=== PATIENT | female | born 1945 | race Caucasian/White ===

== ENCOUNTER 2019-05-09 10:38 | Inpatient (IN) ==
--- NOTE | 2019-04-07 13:52 | PAT Medication Instructions ---
Medication Instructions Date of Service April 07, 2019 Home Medications [[facility]] A-C-E-zinc ox-cupric ox-lutein 1 tab PO BID [probiotic] Lactobacillus acidophilus 1 dose PO DAILY acetaminophen [Tylenol Arthritis 650 mg PO Q12H PRN aflibercept [Eylea] 1 dose INTRAVITREAL Q42D alprazolam [Xanax] 0.25 mg PO HS PRN carvedilol phosphate [Coreg CR] 20 mg PO QPM cetirizine 5 mg PO HS cholecalciferol (vitamin D3) 2,000 unit PO QAM estradiol [Estrace] 1 g VAGINAL Q3D ezetimibe [Zetia] 10 mg PO QPM melatonin 3 mg PO HS PRN olmesartan 5 mg PO QAM rivaroxaban [Xarelto] 20 mg PO PM ASK your surgeon for instructions estradiol [Estrace] 1 g VAGINAL Q3D ASK your prescriber and surgeon rivaroxaban [Xarelto] 20 mg PO PM (in order for spinal anesthesia, this needs to be held for 72 hours/3 days prior to surgery-- please check is this is okay with prescribing doctor) aflibercept [Eylea] 1 dose INTRAVITREAL Q42D STOP taking 2 weeks before surgery (or as soon as possible if surgery is within 2 weeks) [[facility]] A-C-E-zinc ox-cupric ox-lutein 1 tab PO BID DO NOT take the morning of surgery [probiotic] Lactobacillus acidophilus 1 dose PO DAILY cholecalciferol (vitamin D3) 2,000 unit PO QAM olmesartan 5 mg PO QAM Take morning of surgery With a small sip of water, OTHERWISE NOTHING TO EAT OR DRINK AFTER MIDNIGHT: acetaminophen [Tylenol Arthritis 650 mg PO Q12H PRN (okay to take up to 4 hours prior to surgery if needed) Take evening before surgery acetaminophen [Tylenol Arthritis 650 mg PO Q12H PRN (if needed) alprazolam [Xanax] 0.25 mg PO HS PRN (if needed) carvedilol phosphate [Coreg CR] 20 mg PO QPM cetirizine 5 mg PO HS ezetimibe [Zetia] 10 mg PO QPM melatonin 3 mg PO HS PRN (if needed) Other Notes If you have any questions please call us at [phone] or [phone] or [phone] or [phone]
--- NOTE | 2019-04-10 08:13 | History & Physical Report ---
Date of Service April 10, 2019 Date of Surgery: 05-09-19 Assessment & Plan (1) Tricompartment osteoarthritis of right knee: Risks and benefits of procedure discussed in detail today, patient would like to proceed with a Right total knee replacement at [facility] as scheduled. will obtain medical clearance prior to surgery with Dr Bliss, as well as obtain PATs at [facility]. Will need to d/c her Xarelto pre-op, she will discuss with her PCP if bridging is needed, then will resume GABRIELA post- op. she will f/u 2 weeks post op for routine post-operative care and x-ray, sooner if having any problems. will make arrangements for OPPT at the time of discharge. At this point in time, has failed conservative measures and would like to proceed with surgical intervention. History of Present Illness Chief Complaint: Right Knee Pain Primary Care Provider: Farooq Greer Ms Ronquillo is a 74 year old female who complains of right knee pain, presents today for pre-op evaluation prior to a right total knee replacement at [facility]. She presents with pain, stiffness, instability and crepitus on the right side. She states that the symptoms have been chronic non-traumatic. Currently the patient states that the symptoms are moderate-severe. The pain is described as aching, discomfort and sharp. The symptoms occur intermittently. She rates her current pain as 6/10. The symptoms are aggravated by ascending stairs, daily activities, descending stairs, first steps while awake, repetitive activities and walking. Fatimah states that the symptoms are relieved by no specific activity. In addition to right knee pain the patient is also experiencing joint pain, limping, pain after activity and weakness. Pt. is on Xarelto therapy for A-Fib, which limits her NSAID use. She has been treated with previous Cortisone and Visco in the past. Patient had left TKA by Dr. Parmar 2010. at this point has failed conservative measures and would like to proceed with a Right TKA Allergies Allergy/AdvReac Type Severity Reaction Status Date / Time levofloxacin Allergy Intermediate JOINT Verified 04/06/19 09:24 SWELLING, FLUID BEHIND THE EYE codeine AdvReac Unknown nausea Unverified 04/06/19 09:23 Sulfa (Sulfonamide AdvReac Unknown nausea Unverified 04/06/19 09:23 Antibiotics) Home Medications Home Medications Medication Instructions Recorded Confirmed Type A-C-E-zinc ox-cupric ox-lutein 1 tab PO BID 04/06/19 04/06/19 History [[facility]] Lactobacillus acidophilus 1 dose PO DAILY 04/06/19 04/06/19 History [Probiotic] acetaminophen [Tylenol Arthritis 650 mg PO Q12H PRN 04/06/19 04/06/19 History Pain] aflibercept [Eylea] 1 dose INTRAVITREAL Q42D 04/06/19 04/06/19 History alprazolam [Xanax] 0.25 mg PO HS PRN 04/06/19 04/06/19 History carvedilol phosphate [Coreg CR] 20 mg PO QPM 04/06/19 04/06/19 History cetirizine 5 mg PO HS 04/06/19 04/06/19 History cholecalciferol (vitamin D3) 2,000 unit PO QAM 04/06/19 04/06/19 History [Vitamin D3] estradiol [Estrace] 1 g VAGINAL Q3D 04/06/19 04/06/19 History ezetimibe [Zetia] 10 mg PO QPM 04/06/19 04/06/19 History melatonin 3 mg PO HS PRN 04/06/19 04/06/19 History olmesartan 5 mg PO QAM 04/06/19 04/06/19 History rivaroxaban [Xarelto] 20 mg PO PM 04/06/19 04/06/19 History Past Med/Surg History Medical History Atrial fibrillation ON XARELTO Hyperlipidemia Hypertension Kidney stones Macular degeneration Surgical History H/O bilateral breast reduction surgery History of bladder surgery BLADDER TACK, BLADDER SLING History of breast biopsy History of carpal tunnel release BILATERAL History of colonoscopy History of cystoscopy WITH STONE RETRIEVAL History of dilatation and curettage History of thyroidectomy, subtotal R/T NODULES History of tonsillectomy History of total knee replacement LEFT S/P ADÁN (total abdominal hysterectomy) WITH UNILATERAL OOPHERECTOMY Family History Mother FHx: breast cancer Grandmother (Maternal) FHx: breast cancer Brother Family history of diabetes mellitus Aunt Family history of diabetes mellitus Social History Preferred Language: Mauritian Communication Ability: Effective Deputy Chief Counsel Required: No Beliefs That Will Affect Care: None Current Living Situation: Spouse and Family Other Information That Helps Us Care for You: No Feels Safe at Home: Yes Safety Concerns: Feels Safe At This Time Smoking Status: Never smoker Do You Dip or Chew Tobacco: No Second Hand Exposure: Yes Tobacco Cessation Education Requested by Patient: No Hx Alcohol Use: Yes Alcohol type: wine Hx Substance Use: No Review of Systems Review of Systems: All systems reviewed & are unremarkable except as noted in HPI & below Constitutional: no fever, no chills and no sweats Respiratory: no cough and no dyspnea Cardiovascular: no chest pain, no dyspnea and no orthopnea Gastrointestinal: no abdominal pain, no nausea and no vomiting Musculoskeletal: as per Subjective / HPI Integumentary: no rash and no lesions Physical Exam Physical Exam: Ht: 5ft 6in Wt: 85.73kg BP: 122/70 Pulse: 68 Constitutional: WD/WN, vitals as above no acute distress Respiratory: normal respiratory effort, lungs clear to auscultation no respiratory distress, no labored breathing and does not use accessory muscles Cardiovascular: RRR, no murmur, no edema Gastrointestinal (Abdomen): normal bowel sounds, soft, nontender, no hepatosplenomegaly Musculoskeletal: Right Knee Exam She ambulates with a limp, overall varus alignment, no atrophy or ecchymosis, no significant effusion, diffuse tenderness to the knee greatest over medial compartment, positive crepitation with motion, Patella position neutral, wilma's negative, Sosa's - lateral positive, Sosa's - medial positive, Posterior drawer- negative, anterior drawer negative, valgus stress negative, varus stress negative, no extensor lag, pain with active range of motion, less pain with passive painful ROM, Range of motion 0/3/110. No pain with active/passive ROM of ankle. Lower extremity strength normal. Lower extremity neuro-vascular is normal Results & Data Diagnostic Findings Right Knee X-ray from January 2019 showing advanced degenerative changes to the right knee, with narrowing of the medial compartment and patello-femoral joint with patellar spurring noted, findings showing joint space narrowing of the medial compartment and patello-femoral joint, osteophyte formation and subchondral sclerosis noted. overall varus alignment. no acute bony pathology noted. no loose bodies noted.
--- NOTE | 2019-04-10 11:17 | Anesthesiology Consultation ---
Date of Service April 10, 2019 Assessment & Plan (1) Encounter for pre-operative examination: - PCP: 04/13/19: BP "controlled." "She is medically stable for her planned procedure. - Cardio: 11/17/18: Asymptomatic. Rate is "well controlled." Continued on Xarelto. - Elevated isolated PTT at 33.6 (pt on Xarelto). Patient aware that in order for spinal anesthesia, Xarelto needs to be held 72 hours prior to surgery- okay to hold as requested per PCP.* Discussed with Dr. Jackson- recommendation to repeat AM DOS. Chart Review Chart Review: Acceptable Risk for Surgery and Patient seen in Pre Admission Testing Teaching & Discussion Pre-Anesthesia Teaching/Discussion Notes: Instructed NPO after midnight before surgery,except medications with 15 cc of water. Medication instructions provided according to the PAT guidelines. History Surgery Operation Date: 05/09/19 08:35 Proposed Procedures p Right Total Knee Arthroplasty - Ra Parmar DO Height/Weight Height: 5 ft 6 in Weight: 87.8 kg Allergies Allergy/AdvReac Type Severity Reaction Status Date / Time levofloxacin Allergy Intermediate JOINT Verified 04/10/19 11:22 SWELLING, FLUID BEHIND THE EYE codeine AdvReac Unknown NAUSEA Unverified 04/10/19 11:22 Sulfa (Sulfonamide AdvReac Unknown NAUSEA Unverified 04/10/19 11:22 Antibiotics) Medications Home Medications Medication Instructions Recorded Confirmed Last Taken A-C-E-zinc ox-cupric ox-lutein 1 tab PO BID 04/06/19 04/06/19 Unknown [[facility]] Lactobacillus acidophilus 1 dose PO DAILY 04/06/19 04/06/19 Unknown [Probiotic] acetaminophen [Tylenol Arthritis 650 mg PO Q12H PRN 04/06/19 04/06/19 Unknown Pain] aflibercept [Eylea] 1 dose INTRAVITREAL Q42D 04/06/19 04/06/19 Unknown alprazolam [Xanax] 0.25 mg PO HS PRN 04/06/19 04/06/19 Unknown carvedilol phosphate [Coreg CR] 20 mg PO QPM 04/06/19 04/06/19 Unknown cetirizine 5 mg PO HS 04/06/19 04/06/19 Unknown cholecalciferol (vitamin D3) 2,000 unit PO QAM 04/06/19 04/06/19 Unknown [Vitamin D3] estradiol [Estrace] 1 g VAGINAL Q3D 04/06/19 04/06/19 Unknown ezetimibe [Zetia] 10 mg PO QPM 04/06/19 04/06/19 Unknown melatonin 3 mg PO HS PRN 04/06/19 04/06/19 Unknown olmesartan 5 mg PO QAM 04/06/19 04/06/19 Unknown rivaroxaban [Xarelto] 20 mg PO PM 04/06/19 04/06/19 Unknown Past Medical History Medical History Atrial fibrillation ON XARELTO Hyperlipidemia Hypertension Kidney stones Macular degeneration Exercise / Class Metabolic Activity II 4-5 Yardwork/Stairs/Walk up hill Past Family History Family History Mother FHx: breast cancer Grandmother (Maternal) FHx: breast cancer Brother Family history of diabetes mellitus Aunt Family history of diabetes mellitus Past Surgical History Surgical History H/O bilateral breast reduction surgery History of bladder surgery BLADDER TACK, BLADDER SLING History of breast biopsy History of carpal tunnel release BILATERAL History of colonoscopy History of cystoscopy WITH STONE RETRIEVAL History of dilatation and curettage History of thyroidectomy, subtotal R/T NODULES History of tonsillectomy History of total knee replacement LEFT S/P ADÁN (total abdominal hysterectomy) WITH UNILATERAL OOPHERECTOMY Past Anesthesia History No Family Hx of Anesthesia Complications and Other ? A. fib with RVR post-op anesthesia emergence with breast reduction (3+ years ago)- controlled with medical management; discharged next day without issue. History of PONV No Hx of PONV and No Hx of Motion Sickness Social History Smoking Status: Never smoker Do You Dip or Chew Tobacco: No Hx Alcohol Use: Yes Alcohol type: wine alcohol intake frequency: a few times a month Hx Substance Use: No substance use type: does not use Review of Systems Patient denies chest pain, shortness of breath, cough, wheezing, palpitations. Physical Exam Vital Signs VITALS BP 150/83 P 64 TEMP 97.9 SP02 96%RA RESP 20 PHYSICAL Full neck and c-spine range of motion. Full TMJ range of motion. TMD 3.5 finger breaths Mallampati Score 3 Dentition: intact, upper front teeth capped Lungs: clear throughout to auscultation Cardiac: regular rate and rhythm, no murmurs noted Spine: normal Carotid arteries: negative bruit Extremities: no edema Testing Electrocardiogram Date: 11/17/18 A. fib at 88bpm. "Otherwise NL" per cardio. Other Testing 24 hour Holter Report: 11/15/19: average heart rate 72. prevailing rhythm was sinus; periods of sinus tracie/sinus tachycardia with rare PVC's/PAC's. One episode SVT. No symptoms reported. Laboratory Results 04/10/19 11:35 PT 11.0 Seconds (9.0-12.0) 04/10/19 11:35 INR 1.1 (0.9-1.1) 04/10/19 11:35 APTT 33.6 Seconds (21.0-31.0) H 04/10/19 11:35 6.0 % (4.5-5.6) H 04/10/19 11:35 Yellow 04/10/19 11:35 Clear (Clear) 04/10/19 11:35 5.0 (4.5-7.5) 04/10/19 11:35 Ur Specific [place] 1.025 (1.000-1.030) 04/10/19 11:35 Negative (Negative) 04/10/19 11:35 Negative (Negative) 04/10/19 11:35 Negative (Negative) 04/10/19 11:35 Negative (Negative) 04/10/19 11:35 Ur Leukocyte Esterase Negative (Negative) 04/10/19 11:35 Blood Type O Positive 04/10/19 11:35 Antibody Screen NEGATIVE 04/10/19 11:35 03/28/19 SODIUM 142 POTASSIUM 4.0 CHLORIDE 104 CO2 30 BUN 13 CREATININE 0.8 GLUCOSE 82 Due to header error, following labs header labels were missin04/10/19 HGBA1C 6.0% UA negative
[2019-04-10 11:57] LABS: Basophils # (auto) 0.02 K/uL (0-0.2); Basophils % (auto) 0.5 %; Eosinophils # (auto) 0.03 K/uL (0-0.5); Eosinophils % (auto) 0.7 %; Hematocrit (blood only) 42.1 % (37-47); Hemoglobin 13.7 g/dL (12.0-16.0); Lymphocytes # (auto) 1.67 K/uL (1.2-3.4); Lymphocytes % (auto) 39.2 %; Mean Corpuscular Hgb Conc 32.5 g/dL (32-36); Mean Corpuscular Volume 92.1 fL (80-100); Monocytes # (auto) 0.38 K/uL (0.11-0.59); Monocytes % (auto) 8.9 %; Neutrophils # (auto) 2.16 K/uL (1.4-6.5); Neutrophils % (auto) 50.7 %; Platelet Count 243 K/uL (130-400); RDW Coefficient of Variation 13.5 % (11.5-14.5); RDW Standard Deviation 45.1 fL (36.4-46.3); Red Blood Count 4.57 M/uL (4.2-5.4); White Blood Count 4.26 K/uL (4.8-10.8)
[2019-04-10 11:59] LABS: Appearance Urine Clear (Clear); Bilirubin Urine Negative (Negative); Blood Urine Negative (Negative); Color Urine Yellow; Glucose Urine UA Negative (Negative); Ketones Urine Negative (Negative); Leukocyte Esterase Urine Negative (Negative); Nitrite Urine Negative (Negative); Protein Urine Negative (Negative); Specific Gravity Urine 1.025 (1.000-1.030); Urobilinogen Urine Negative (Negative)
[2019-04-10 12:07] LABS: INR 1.1 (0.9-1.1); Partial Thromboplastin Ratio 1.2; Partial Thromboplastin Time 33.6 Seconds (21.0-31.0)
--- NOTE | 2019-04-10 12:08 | XRay Report ---
XR chest Pre-admission PA/Lat CLINICAL HISTORY: pat preoperative evaluation COMPARISON STUDY: No previous studies for comparison. FINDINGS: The bones soft tissues and hemidiaphragms are normal. The cardiomediastinal silhouette is n ormal. The lungs are clear. The pulmonary vasculature is normal. IMPRESSION: Negative chest. The above report was generated using voice recognition software. It may contain grammatical, syntax or spelling errors. Electronically signed by: Nagi Tafoya M.D. 04/10/2019 12:07 PM
[2019-04-10 12:43] LABS: Estimated Average Glucose 126 mg/dl
[~2019-05-09 10:38] MED LIST: ACETAMINOPHEN 500 MG TAB PO SCH; CEFAZOLIN 2000MG 2,000 MG/15 ML SYR IV SCH; CeleBREX 200 MG CAP PO SCH; FAMOTIDINE 20 MG TAB PO SCH; GABAPENTIN 300 MG PO SCH; LR 500ML BOLUS, THEN 15ML/HR IV SCH; METOCLOPRAMIDE HCL 10 MG TABLET PO SCH; ROPIVACAINE 0.5% HCL/PF 150 MG, BUPIVACAINE 0.5% MPF 30 ML, EPINEPHrine 30MG/30ML (OR U... INFIL SCH; dexAMETHasone 4 MG TAB PO SCH
[2019-05-09] MEDS ORDERED: BUPIVACAINE 0.5 % 5 MG/1 ML PF 10ML VIAL ONE (11:11)
[2019-05-09] MEDS ORDERED: ROPIVACAINE 0.5% 5 MG/ML 30 ML VIAL ONE (11:11)
[2019-05-09 11:22] LABS: Partial Thromboplastin Ratio 1.1; Partial Thromboplastin Time 29.3 Seconds (21.0-31.0)
[2019-05-09] MEDS ORDERED: MIDAZOLAM HCL 1 MG/ML 2ML VIAL ONE ×2 (11:33)
[2019-05-09] MEDS ORDERED: fentaNYL citrate 100 MCG/2 ML VIAL ONE (11:34)
[2019-05-09] MEDS ORDERED: LIDOCAINE HCL 2% 2 ML VIAL/AMP(20MG/ML) INFIL ONE (11:35)
[2019-05-09] MEDS ORDERED: PROPOFOL IV EMULSION 10 MG/ML 20 ML VIAL IV ONE (11:35)
[2019-05-09] MEDS ORDERED: ONDANSETRON INJ 2 MG/ML 2 ML VIAL ONE (11:37)
[2019-05-09] MEDS ORDERED: ONDANSETRON INJ 2 MG/ML 2 ML VIAL IV PRN ×2 (12:10→15:54)
[2019-05-09] MEDS ORDERED: ATROPINE SULFATE 0.1 MG/ML 10ML SYR IV PRN (12:10)
[2019-05-09] MEDS ORDERED: fentaNYL citrate 100 MCG/2 ML VIAL IV PRN (12:10)
[2019-05-09] MEDS ORDERED: ePHEDrine sulfate 50 MG/ML AMP IV PRN (12:10)
[2019-05-09] MEDS ORDERED: ORTHO JOINT ANESTHETIC ONE (12:13)
[2019-05-09] MEDS ORDERED: BACITRACIN INJ 50,000 UNIT VIAL ONE (12:13)
[2019-05-09] MEDS ORDERED: TRANEXAMIC ACID 1,000 MG in 0.9 % SODIUM CHLORIDE 100 ML IV ONE (12:30)
--- NOTE | 2019-05-09 12:41 | History & Physical Bridge Note ---
Date of Service May 09, 2019 History & Physical Bridge Note I have examined the patient, reviewed the History & Physical and in the interval since the performance of the History & Physical I have noted the following changes of clinical significance: no changes noted
[2019-05-09] MEDS ORDERED: POVIDONE-IODINE 10% OINT 30 GM TUBE EXT SCH (13:30)
--- NOTE | 2019-05-09 13:51 | Operative Report ---
Post Operative Report Pre & Post Diagnosis Operation Date: 05/09/19 13:00 Pre-Op Diagnosis: Left Knee Osteoarthritis Post-Op Diagnosis: Left Knee Osteoarthritis Procedure Operation Date: 05/09/19 13:00 Actual Procedures p Right Total Knee Arthroplasty(Right) utilizing [employer] to non- block total knee arthroplasty size 6 femur size 5 tibia size 10 polyethylene s ize 32 oval patella- Ra Parmar DO Surgeon Ra Parmar DO Product Marketing Executive Nagi LICEA Estimated Blood Loss 5 Findings Consistent with Post-Op Diagnosis Patient presents with severe end-stage tricompartmental degenerative joint disease right knee bone to bone changes no response to conservative management patient patient has some bone to bone changes eburnated bone subchondral cystic changes marginal osteophytes varus alignment with moderate to large effusion Specimens Bone cartilage Drains Medium bore Hemovac Complications none Disposition Accompanied Patient To Recovery: No Disposition: Recovery Room Indications Patient presents as a 72-year-old female with severe end-stage tricompartmental degenerative joint disease right knee is been no response to conservative management presents today for right total knee arthroplasty. The above intraoperative findings noted the patient is failed attempted injections corticosteroid injections Visco supplementations relative rest activity modific ation bracing presents for right total knee arthroplasty Description of Procedure After proper prepping and draping of the Right lower extremity anterior midline incision was made over the region of the extensor extensor mechanism after meticulous hemostasis was obtained and maintained in subcutaneous tissues a medial parapatellar incision was made The patella was subluxed lateralward the medial lateral gutter were cleaned from any hypertrophic synovitis and scar tissue of the distal femoral block was placed and the distal femoral osteotomy cut was made subsequently the chamfers anterior and posterior osteotomy cuts were made utilizing the 4-in-1 block the tibia was subsequently subluxed anteriorward medial and ateral meniscal remnants were excised in their entirety remnants of the anterior and posterior cruciate ligaments were excised in their entirety excellent exposure of the proximal tibia was obtained the tibial osteotomy guide was placed on the proximal tibial osteotomy cut was made once again the knee was irrigated with copious amounts of sterile saline solution the patella was subsequently everted lateralward thickened scar tissue around the patella was removed the patella was subsequently cut utilizing a freehand technique and was drilled prepared for final preparation and placement of patella socially flexion-extension gaps were checked and the equal and symmetric trials were placed to the appropriate femoral and tibial trials with poly-spacer being placed for equal flexion and extension gaps and full range of motion including extension to 0 and flexion to 140� the trial components after having been taken to recovery range of motion was subsequently removed meticulous hemostasis was obtained and maintained subsequently a knee block injection of joint cocktail including ropivacaine 0.5% 150 mg. Bupivacaine 0.5% epinephrine 1-200,030 mL's toradol 30 mg dexamethasone 4 mg ketamine 10 mg clonidine 100 micrograms normal saline solution 30 mg was infiltrated into the soft tissues of the posterior knee medial lateral gutters and periosteal synovium special attention was paid to protect neurovascular structures at all times subsequently trial components having been removed the knee was irrigated with sterile saline solution. debris was removed the proximal tibia was subsequently prepared and was made ready for the placement of the tibial component tibial component was also cemented and tamped into position the femoral component was subsequently placed and cemented in the position the patellar component was subsequently cemented in position because hemostasis once again obtained and maintained wound having been thoroughly irrigated with debridement and debridement lavage was performed as well as a medial parapatellar incision closed with #1 Vicryl in interrupted fashion subcutaneous was closed with #2 Vicryl skin was closed with skin clips. PA-C was necessary for prepping and drapping as well as wound closure of deep fascia Sub cutaneous tissue and skin and was necessary for the case. A sterile compressive dressing was placed patient was taken to recovery in stable condition of report dictated by Ghulam I attest to the content of the Intraoperative Record and any orders documented therein. Any exceptions are noted below. I attest to the content of the Intraoperative Record and any orders documented therein. Any exceptions are noted below.
[2019-05-09] MEDS ORDERED: PHENYLEPHRINE HCL 10 MG/ML VIAL ONE (14:19)
--- NOTE | 2019-05-09 15:23 | XRay Report ---
XR knee RT 2V routine HISTORY: 74 years-old Female Surgical Post Op right knee total joint arthroplasty. COMPARISON: None available TECHNIQUE: 2 views of the right knee FINDINGS: Right knee total joint arthroplasty and patella resurfacing demonstrates satisfactory alignment witho ut acute fracture or retained foreign body. Expected postsurgical soft tissue swelling with surgical drainage catheter. IMPRESSION: Right knee total joint arthroplasty and patella resurfacing demonstrates satisfactory ali gnment. The above report was generated using voice recognition software. It may contain grammatical, syntax o r spelling errors. Electronically signed by: Misael Hernandez M.D. 05/09/2019 3:22 PM
--- NOTE | 2019-05-09 15:35 | Anesthesiology Progress Note ---
Date of Service May 09, 2019 Anesthesia Post Procedure Vital Signs Vital Signs: Temp Pulse Pulse Resp BP Pulse Ox 05/09/19 15:20 36.4 C L 67 18 114/72 97 05/09/19 15:10 36.4 C L 69 18 114/71 98 05/09/19 15:00 71 18 112/76 98 05/09/19 14:50 67 18 109/75 100 05/09/19 14:40 71 18 106/72 99 05/09/19 14:32 36.4 C L 71 18 117/79 98 05/09/19 11:20 36.8 C 99 H 20 148/94 H 98 Transfer of Care Handoff Completed per policy Notes Mental Status: alert / awake / arousable Patient Amnestic to Procedure: Yes Nausea / Vomiting: adequately controlled Pain: adequately controlled Airway Patency, RR, SpO2: stable & adequate BP & HR: stable & adequate Hydration State: stable & adequate Neuraxial Anesthesia: was administered and sensory block is resolving Anesthetic Complications: no major complications apparent and Pt Satisfied with anesthetic care
[2019-05-09] MEDS ORDERED: MAGNESIUM HYDROXIDE SUSP 30 ML UDC PO PRN (15:54)
[2019-05-09] MEDS ORDERED: BISACODYL 10 MG SUPP PR PRN (15:54)
[2019-05-09] MEDS ORDERED: NALOXONE HCL 0.4 MG/1 ML VIAL/CARP IV PRN (15:54)
[2019-05-09] MEDS ORDERED: METOCLOPRAMIDE HCL INJ 5 MG/ML 2 ML VIAL IV PRN (15:54)
[2019-05-09] MEDS ORDERED: AFLIBERCEPT INT VIT SCH (15:54)
[2019-05-09] MEDS ORDERED: ALPRAZolam 0.25 MG TABLET PO PRN (15:54)
[2019-05-09] MEDS ORDERED: ESTRADIOL 1 GM PV SCH (15:54)
[2019-05-09] MEDS ORDERED: HYDROmorphone INJ 1 MG/ML SYRINGE IV PRN (15:54)
[2019-05-09] MEDS: KETOROLAC TROMETHAMINE 15 MG/ML VIAL IV SCH ×2 (17:58→23:43)
[2019-05-09] MEDS: SODIUM CHLORIDE 0.9% 1000ML 1,000 ML IV SCH (19:25)
[2019-05-09] MEDS: CEFAZOLIN 2000MG 2,000 MG/15 ML SYR IV SCH (19:26)
[2019-05-09] MEDS: OXYCODONE HCL IR 5 MG TAB (IMMEDIATE RELEASE) PO PRN (20:57)
[2019-05-09] MEDS: SENNA 8.6 MG TAB PO SCH (20:58)
[2019-05-09] MEDS: DOCUSATE SODIUM 100 MG CAP PO SCH (20:58)
[2019-05-09] MEDS: CETIRIZINE HCL 10 MG TABLET PO SCH (20:58)
[2019-05-09] MEDS: EZETIMIBE 10 MG TABLET PO SCH (20:58)
[2019-05-09] MEDS: COREG 20 MG PO SCH (20:58)
[2019-05-09] MEDS: ACETAMINOPHEN 500 MG TAB PO SCH (20:59)
[2019-05-09] MEDS ORDERED: CARVEDILOL PHOSPHATE 20 MG PO SCH (21:00)
[2019-05-10] MEDS: OXYCODONE HCL IR 5 MG TAB (IMMEDIATE RELEASE) PO PRN ×3 (01:00→22:51)
[2019-05-10] MEDS: SODIUM CHLORIDE 0.9% 1000ML 1,000 ML IV SCH (04:37)
[2019-05-10] MEDS: ACETAMINOPHEN 500 MG TAB PO SCH ×3 (05:32→21:20)
[2019-05-10] MEDS: CEFAZOLIN 2000MG 2,000 MG/15 ML SYR IV SCH (05:32)
[2019-05-10] MEDS: KETOROLAC TROMETHAMINE 15 MG/ML VIAL IV SCH ×4 (05:32→23:43)
[2019-05-10 05:51] LABS: Hematocrit (blood only) 36.9 % (37-47); Hemoglobin 12.4 g/dL (12.0-16.0); Mean Corpuscular Hgb Conc 33.6 g/dL (32-36); Mean Corpuscular Volume 91.3 fL (80-100); Mean Platelet Volume 9.3 fL (7.4-10.4); Platelet Count 239 K/uL (130-400); RDW Standard Deviation 43.6 fL (36.4-46.3); Red Blood Count 4.04 M/uL (4.2-5.4); White Blood Count 10.34 K/uL (4.8-10.8)
[2019-05-10 06:26] LABS: BUN Creatinine Ratio 19.7 (10-20); Calcium 8.4 mg/dl (8.5-10.1); Creatinine Clr Calc Pharmacy 55.1 ml/min; Est GFR (African American) 62.9; Est GFR (Non-African American) 54.3; Potassium 4.5 mmol/L (3.5-5.1)
--- NOTE | 2019-05-10 07:11 | Anesthesiology Progress Note ---
Date of Service May 10, 2019 Anesthesia Post Procedure Vital Signs Vital Signs: Temp Pulse Pulse Resp BP BP Pulse Ox 05/10/19 03:17 36.5 C 72 16 125/76 96 05/09/19 22:50 36.6 C 69 16 143/79 H 96 05/09/19 20:55 77 127/76 05/09/19 18:43 36.4 C L 77 17 129/77 97 05/09/19 17:47 36.4 C L 75 18 129/77 98 05/09/19 16:39 36.4 C L 73 18 124/81 98 05/09/19 15:35 36.4 C L 71 18 113/76 96 05/09/19 15:20 36.4 C L 67 18 114/72 97 05/09/19 15:10 36.4 C L 69 18 114/71 98 05/09/19 15:00 71 18 112/76 98 05/09/19 14:50 67 18 109/75 100 05/09/19 14:40 71 18 106/72 99 05/09/19 14:32 36.4 C L 71 18 117/79 98 05/09/19 11:20 36.8 C 99 H 20 148/94 H 98 Notes Mental Status: alert / awake / arousable and participated in evaluation Nausea / Vomiting: adequately controlled Pain: adequately controlled Airway Patency, RR, SpO2: stable & adequate BP & HR: stable & adequate Hydration State: stable & adequate
--- NOTE | 2019-05-10 08:19 | Orthopedic Progress Note ---
Date of Service May 10, 2019 Assessment & Plan (1) Tricompartment osteoarthritis of right knee: Postop day 1 status post right TKA. PT/OT protocols. Weightbearing as tolerated. DVT prophylaxis-rivaroxaban, SCDs, RM hose. Pain management-acetaminophen, oxycodone, hydromorphone. DC planning-patient is planning for outpatient PT upon discharge. Patient to be seen by Dr. Parmar today Subjective Postop day 1 status post right total knee arthroplasty Patient is currently sitting in bed awake and alert. She has no complaints this morning. Pain is controlled. Denies shortness of breath, chest pain, lightheadedness. Denies calf tenderness. Physical Exam Physical Exam: Dressings are clean, dry, and intact. Toes are mobile. Neurovascular is intact. Calves are soft nontender. 20 cc of drainage from the previous shift from her Hemovac. Results & Data Vital Signs (Past 12 Hours) Vital Signs Temp Pulse Resp BP Pulse Ox 05/10/19 07:32 36.4 C L 64 16 126/79 98 05/10/19 03:17 36.5 C 72 16 125/76 96 05/09/19 22:50 36.6 C 69 16 143/79 H 96 05/09/19 20:55 77 127/76 Laboratory Results Laboratory Results WBC 10.34 K/uL (4.8-10.8) 05/10/19 05:39 RBC 4.04 M/uL (4.2-5.4) L 05/10/19 05:39 Hgb 12.4 g/dL (12.0-16.0) 05/10/19 05:39 Hct 36.9 % (37-47) L 05/10/19 05:39 MCV 91.3 fL (80-100) 05/10/19 05:39 MCH 30.7 pg (25-34) 05/10/19 05:39 MCHC 33.6 g/dL (32-36) 05/10/19 05:39 RDW Std Deviation 43.6 fL (36.4-46.3) 05/10/19 05:39 RDW Coeff of Yusra 13.0 % (11.5-14.5) 05/10/19 05:39 Plt Count 239 K/uL (130-400) 05/10/19 05:39 MPV 9.3 fL (7.4-10.4) 05/10/19 05:39 Immature Gran % (Auto) 0.0 % 04/10/19 11:35 Neut % (Auto) 50.7 % 04/10/19 11:35 Lymph % (Auto) 39.2 % 04/10/19 11:35 [place] % (Auto) 8.9 % 04/10/19 11:35 Eos % (Auto) 0.7 % 04/10/19 11:35 Baso % (Auto) 0.5 % 04/10/19 11:35 Immature Gran # (Auto) 0.00 K/uL (0.00-0.02) 04/10/19 11:35 Neut # (Auto) 2.16 K/uL (1.4-6.5) 04/10/19 11:35 Lymph # (Auto) 1.67 K/uL (1.2-3.4) 04/10/19 11:35 [place] # (Auto) 0.38 K/uL (0.11-0.59) 04/10/19 11:35 Eos # (Auto) 0.03 K/uL (0-0.5) 04/10/19 11:35 Baso # (Auto) 0.02 K/uL (0-0.2) 04/10/19 11:35 PT 11.0 Seconds (9.0-12.0) 04/10/19 11:35 INR 1.1 (0.9-1.1) 04/10/19 11:35 APTT 29.3 Seconds (21.0-31.0) 05/09/19 11:03 PTT Ratio 1.1 05/09/19 11:03 Sodium 140 mmol/L (136-145) 05/10/19 05:39 Potassium 4.5 mmol/L (3.5-5.1) 05/10/19 05:39 Chloride 108 mmol/L (98-107) H 05/10/19 05:39 Carbon Dioxide 25 mmol/L (21-32) 05/10/19 05:39 Anion Gap 6.0 (3-11) 05/10/19 05:39 BUN 20 mg/dl (7-18) H 05/10/19 05:39 Creatinine 1.03 mg/dl (0.6-1.2) 05/10/19 05:39 Est Cr Clr Drug Dosing 55.1 ml/min 05/10/19 05:39 Est GFR ( Amer) 62.9 05/10/19 05:39 Est GFR (Non-Af Amer) 54.3 05/10/19 05:39 BUN/Creatinine Ratio 19.7 (10-20) 05/10/19 05:39 Glucose 133 mg/dl (70-99) H 05/10/19 05:39 Estimat Average Glucose 126 mg/dl 04/10/19 11:35 Hemoglobin A1c 6.0 % (4.5-5.6) H 04/10/19 11:35 Calcium 8.4 mg/dl (8.5-10.1) L 05/10/19 05:39 Urine Color Yellow 04/10/19 11:35 Urine Appearance Clear (Clear) 04/10/19 11:35 Urine pH 5.0 (4.5-7.5) 04/10/19 11:35 Ur Specific [place] 1.025 (1.000-1.030) 04/10/19 11:35 Urine Protein Negative (Negative) 04/10/19 11:35 Urine Glucose (UA) Negative (Negative) 04/10/19 11:35 Urine Ketones Negative (Negative) 04/10/19 11:35 Urine Blood Negative (Negative) 04/10/19 11:35 Urine Nitrite Negative (Negative) 04/10/19 11:35 Urine Bilirubin Negative (Negative) 04/10/19 11:35 Urine Urobilinogen Negative (Negative) 04/10/19 11:35 Ur Leukocyte Esterase Negative (Negative) 04/10/19 11:35 Blood Type O Positive 04/10/19 11:35 Antibody Screen NEGATIVE 04/10/19 11:35
[2019-05-10] MEDS: DOCUSATE SODIUM 100 MG CAP PO SCH ×2 (08:55→21:19)
[2019-05-10] MEDS: MULTIVITAMIN TAB PO SCH (08:56)
[2019-05-10] MEDS: OLMESARTAN MEDOXOMIL 5 MG TAB PO SCH (08:56)
[2019-05-10] MEDS: CHOLECALCIFEROL 1,000 UNITS TAB PO SCH (08:56)
[2019-05-10] MEDS ORDERED: RIVAROXABAN 20 MG TAB PO SCH (17:00)
[2019-05-10] MEDS: SENNA 8.6 MG TAB PO SCH (21:17)
[2019-05-10] MEDS: CETIRIZINE HCL 10 MG TABLET PO SCH (21:18)
[2019-05-10] MEDS: EZETIMIBE 10 MG TABLET PO SCH (21:19)
[2019-05-10] MEDS: COREG 20 MG PO SCH (21:19)
[2019-05-11] MEDS: ACETAMINOPHEN 500 MG TAB PO SCH (05:35)
[2019-05-11] MEDS: KETOROLAC TROMETHAMINE 15 MG/ML VIAL IV SCH ×2 (05:36→11:40)
--- NOTE | 2019-05-11 07:24 | Orthopedic Progress Note ---
Date of Service May 11, 2019 Assessment & Plan (1) Tricompartment osteoarthritis of right knee: Postop day 2 status post right TKA. PT/OT protocols. Weightbearing as tolerated. DVT prophylaxis-rivaroxaban, SCDs, RM hose. Pain management-acetaminophen, oxycodone, hydromorphone. DC planning-patient is planning for outpatient PT upon discharge, likely after PT today Subjective Postop day 2 status post right total knee arthroplasty Patient is currently sitting in bed awake and alert. She has no complaints this morning. Pain is controlled. Denies shortness of breath, chest pain, lightheadedness. Denies calf tenderness. Review of Systems Constitutional: no fever and no chills Respiratory: no cough and no dyspnea Cardiovascular: no chest pain Physical Exam Physical Exam: Vital Signs Temp Pulse Resp BP Pulse Ox 05/10/19 23:08 36.7 C 63 16 106/64 98 05/10/19 19:08 36.8 C 71 16 136/74 96 05/10/19 15:58 36.8 C 69 18 131/65 99 05/10/19 11:24 36.7 C 65 16 124/76 96 05/10/19 07:32 36.4 C L 64 16 126/79 98 Intake and Output 05/10/19 05/11/19 05/11/19 22:59 06:59 14:59 Output Total 125 / 325 50 / 325 Balance -125 / 225 -50 / 225 Output: Drain Output 125 / 325 50 / 325 Right Knee 125 / 325 50 / 325 Other: # Unmeasured Voi ds 1 2 Musculoskeletal: right knee: NVDI, calf SNT, negative joy sign. DP palpable, able to wiggle toes/ankle movement without difficulty. BEVERLY dressing clean dry and intact. expected post-operative bruising noted. Results & Data Vital Signs (Past 12 Hours) Vital Signs Temp Pulse Resp BP Pulse Ox 05/10/19 23:08 36.7 C 63 16 106/64 98 Laboratory Results Laboratory Results WBC 10.34 K/uL (4.8-10.8) 05/10/19 05:39 RBC 4.04 M/uL (4.2-5.4) L 05/10/19 05:39 Hgb 12.4 g/dL (12.0-16.0) 05/10/19 05:39 Hct 36.9 % (37-47) L 05/10/19 05:39 MCV 91.3 fL (80-100) 05/10/19 05:39 MCH 30.7 pg (25-34) 05/10/19 05:39 MCHC 33.6 g/dL (32-36) 05/10/19 05:39 RDW Std Deviation 43.6 fL (36.4-46.3) 05/10/19 05:39 RDW Coeff of Yusra 13.0 % (11.5-14.5) 05/10/19 05:39 Plt Count 239 K/uL (130-400) 05/10/19 05:39 MPV 9.3 fL (7.4-10.4) 05/10/19 05:39 Immature Gran % (Auto) 0.0 % 04/10/19 11:35 Neut % (Auto) 50.7 % 04/10/19 11:35 Lymph % (Auto) 39.2 % 04/10/19 11:35 [place] % (Auto) 8.9 % 04/10/19 11:35 Eos % (Auto) 0.7 % 04/10/19 11:35 Baso % (Auto) 0.5 % 04/10/19 11:35 Immature Gran # (Auto) 0.00 K/uL (0.00-0.02) 04/10/19 11:35 Neut # (Auto) 2.16 K/uL (1.4-6.5) 04/10/19 11:35 Lymph # (Auto) 1.67 K/uL (1.2-3.4) 04/10/19 11:35 [place] # (Auto) 0.38 K/uL (0.11-0.59) 04/10/19 11:35 Eos # (Auto) 0.03 K/uL (0-0.5) 04/10/19 11:35 Baso # (Auto) 0.02 K/uL (0-0.2) 04/10/19 11:35 PT 11.0 Seconds (9.0-12.0) 04/10/19 11:35 INR 1.1 (0.9-1.1) 04/10/19 11:35 APTT 29.3 Seconds (21.0-31.0) 05/09/19 11:03 PTT Ratio 1.1 05/09/19 11:03 Sodium 140 mmol/L (136-145) 05/10/19 05:39 Potassium 4.5 mmol/L (3.5-5.1) 05/10/19 05:39 Chloride 108 mmol/L (98-107) H 05/10/19 05:39 Carbon Dioxide 25 mmol/L (21-32) 05/10/19 05:39 Anion Gap 6.0 (3-11) 05/10/19 05:39 BUN 20 mg/dl (7-18) H 05/10/19 05:39 Creatinine 1.03 mg/dl (0.6-1.2) 05/10/19 05:39 Est Cr Clr Drug Dosing 55.1 ml/min 05/10/19 05:39 Est GFR ( Amer) 62.9 05/10/19 05:39 Est GFR (Non-Af Amer) 54.3 05/10/19 05:39 BUN/Creatinine Ratio 19.7 (10-20) 05/10/19 05:39 Glucose 133 mg/dl (70-99) H 05/10/19 05:39 Estimat Average Glucose 126 mg/dl 04/10/19 11:35 Hemoglobin A1c 6.0 % (4.5-5.6) H 04/10/19 11:35 Calcium 8.4 mg/dl (8.5-10.1) L 05/10/19 05:39 Urine Color Yellow 04/10/19 11:35 Urine Appearance Clear (Clear) 04/10/19 11:35 Urine pH 5.0 (4.5-7.5) 04/10/19 11:35 Ur Specific [place] 1.025 (1.000-1.030) 04/10/19 11:35 Urine Protein Negative (Negative) 04/10/19 11:35 Urine Glucose (UA) Negative (Negative) 04/10/19 11:35 Urine Ketones Negative (Negative) 04/10/19 11:35 Urine Blood Negative (Negative) 04/10/19 11:35 Urine Nitrite Negative (Negative) 04/10/19 11:35 Urine Bilirubin Negative (Negative) 04/10/19 11:35 Urine Urobilinogen Negative (Negative) 04/10/19 11:35 Ur Leukocyte Esterase Negative (Negative) 04/10/19 11:35 Blood Type O Positive 04/10/19 11:35 Antibody Screen NEGATIVE 04/10/19 11:35 Diagnostic Findings XR knee RT 2V routine HISTORY: 74 years-old Female Surgical Post Op right knee total joint a rthroplasty. COMPARISON: None available TECHNIQUE: 2 views of the right knee FINDINGS: Right knee total joint arthroplasty and patella resurfacing demonstrates satisfactory alignment without acute fracture or retained foreign body. Expected postsurgical soft tissue swelling with surgical drainage catheter. IMPRESSION: Right knee total joint arthroplasty and patella resurfacing demonstrates satisfactory alignment.
[2019-05-11] MEDS: OLMESARTAN MEDOXOMIL 5 MG TAB PO SCH (08:45)
[2019-05-11] MEDS: DOCUSATE SODIUM 100 MG CAP PO SCH (08:45)
[2019-05-11] MEDS: CHOLECALCIFEROL 1,000 UNITS TAB PO SCH (08:45)
[2019-05-11] MEDS: MULTIVITAMIN TAB PO SCH (08:46)
[2019-05-11] MEDS: OXYCODONE HCL IR 5 MG TAB (IMMEDIATE RELEASE) PO PRN ×2 (08:47→12:46)
--- NOTE | 2019-05-14 07:32 | Discharge Summary ---
Date of Service date of discharge: May 11, 2019 Date of admission: 05/09/19 Admission HPI Per Admitting Provider Ms Ronquillo is a 74 year old female who complains of right knee pain, presents today for pre-op evaluation prior to a right total knee replacement at [facility]. She presents with pain, stiffness, instability and crepitus on the right side. She states that the symptoms have been chronic non-traumatic. Currently the patient states that the symptoms are moderate-severe. The pain is described as aching, discomfort and sharp. The symptoms occur intermittently. She rates her current pain as 6/10. The symptoms are aggravated by ascending stairs, daily activities, descending stairs, first steps while awake, repetitive activities and walking. [place] states that the symptoms are relieved by no specific activity. In addition to right knee pain the patient is also experiencing joint pain, limping, pain after activity and weakness. Pt. is on Xarelto therapy for A-Fib, which limits her NSAID use. She has been treated with previous Cortisone and Visco in the past. Patient had left TKA by Dr. Parmar 2010. at this point has failed conservative measures and would like to proceed with a Right TKA Principal Diagnosis right knee osteoarthritis Discharge Exam Musculoskeletal NVDI, calf SNT, negative joy sign. DP palpable, able to wiggle toes/ankle movement without difficulty. BEVERLY dressing clean dry and intact. expected post- operative bruising noted. Discharge Data Allergies Allergy/AdvReac Type Severity Reaction Status Date / Time levofloxacin Allergy Intermediate JOINT Verified 05/09/19 12:51 SWELLING, FLUID BEHIND THE EYE Sulfa (Sulfonamide AdvReac Intermediate NAUSEA Verified 05/09/19 12:51 Antibiotics) codeine AdvReac Mild NAUSEA Verified 05/09/19 12:51 Consultations 05/09/19 15:54 Consult Case Management - Discharge Planning Routine Procedures Performed Operation Date: 05/09/19 13:00 Actual Procedures p Right Total Knee Arthroplasty(Right) - Ra Parmra DO Ordered Studies 05/09/19 05:00 US - OR guided needle placemen Routine Hospital Course (1) Tricompartment osteoarthritis of right knee: Postop day 2 status post right TKA. PT/OT protocols. Weightbearing as tolerated. DVT prophylaxis-rivaroxaban, SCDs, RM hose. Pain management-acetaminophen, oxycodone, hydromorphone. DC planning-patient discharged with OPPT Total Time Total Time Spent Total Time Spent (In Minutes): 20 Total Time Includes: Examination of the Patient, Discharge Planning and Medication Reconciliation Discharge Plan Discharge Items Patient Disposition: Home - Self-Care Reason For Visit: Left Knee Osteoarthritis Discharge Diagnosis: Left Knee Osteoarthritis Condition: Good Discharge Goals: Decrease discomfort and Improve function Activity: Per 'Additional Instructions' section Weightbearing: Right weightbearing Weightbearing Comment: as tolerated with walker Non-emergency contact: Surgeon Call non-emergency contact if: your pain is not controlled, your temperature is above 101.5, your wound has increased redness and your wound has increased drainage Follow-up/Referrals: Farooq Greer M.D. [Primary Care Provider] - Diet: Regular Addtl Provider Instructions: ACTIVITY RECOMMENDATIONS: SELF CARE INSTRUCTIONS AFTER TOTAL KNEE REPLACEMENT A. You may need to continue a physical therapy program after discharge from the hospital. There are several options available to you. Your doctor will assist you in selecting the best one for you. 1. An out-patient facility 2 to 3 times a week for therapy or home therapy. 2. Continue working on all exercises taught to you in the hospital. Your goals should be to increase bending of your knee to 90 degrees and beyond and to fully straighten your knee. B. You may progress at your own pace from walking with a walker or crutches to a cane; then to no assistive devices. C. Make walking a part of your daily routine. Be up as much as comfortable with rest periods throughout the day. Rest with leg elevation is very important. Use the ice wrap frequently for the first 3-4 weeks. D. There are no restrictions on activities. You may ride in a car, shop, participate in premium note interest calculator clerk and all social activities. E. Wear the long elastic stockings (RM hose) 20 hours a day for 2 weeks after surgery. They can be removed several times a day for laundering and for a bath. F. You may shower, no tub baths until cleared by your doctor. SPECIAL CARE INSTRUCTIONS: VERY IMPORTANT TO READ AND REVIEW A. There are a few signs you need to watch for after you are home. Call [facility] if you notice any of the followin. Increased severe knee pain. Some pain is expected especially when you exercise. 2. Increased swelling in your leg or knee; pain or swelling of the calf muscle in either lower leg. 3. Any fluid drainage from the incision. 4. Shortness of breath or chest pain. B. Please call [facility] at if you have any concerns or questions about your operation or recovery. The doctor or his nurse will return your call promptly. C. You must take antibiotics before dental work, bladder, bowel or other surgery. Your doctor will provide you with a permanent care to carry describing this precaution. IMPORTANT: * REMEMBER TO TAKE RIVAROXIBAN 20 MG, DAILY FOR 4 WEEKS UNLESS OTHERWISE DIRECTED. THIS IS YOUR BLOOD THINNER. * CALL IF INCREASED PAIN, REDNESS, DRAINAGE OR FEVER GREATER THAT 101. * WEAR RM HOSE 20 HOURS PER DAY FOR 2 WEEKS. * BEVERLY dressing- This is a large suction dressing covering your incision. This will help pull any excess drainage from the wound and allow your incision to heal properly. You may shower with this if you can keep the unit outside of the shower. If any bleeding or leakage is noted please call your doctor's office. This will remain on your incision for 7 days and then should be removed. This can be done yourself or by the home nursing staff if applicable. The entire unit is disposable once removed. Once removed, keep incision clean and dry. If redness or drainage is noted, please call your surgeon. . DERMABOND [place]- This is a mesh tape dressing that is covered with glue. It should remain in place until the incision is properly healed, usually 10-14 days. This dressing is designed to naturally slough off. You may trim the excess mesh tape as it peels off. Incision may be briefly wet in a shower. Dry immediately by blotting with a clean, dry towel. Do not bath or swim until instructed by your doctor. Do not scratch, rub, or pick at the dressing. Do not apply any topical ointments or lotions until dressing is completely removed and/or instructed by your doctor. There may be a small piece of suture material at one end of your incision. Do not pull or trim this. If it is bothersome or catching on clothing, you may cover it with a band-aid. FOLLOW UP VISIT: If appointment is not already scheduled: Please call [facility] to make a follow-up appointment for 2 weeks after your surgery at . Prescriptions: New acetaminophen [Tylenol Extra Strength] 500 mg Tablet 1,000 mg PO Q8 14 Days Qty: 84 RF: 0 oxycodone 5 mg Tablet 5 - 10 mg PO Q6H PRN (Reason: pain) Qty: 30 RF: 0 docusate sodium 100 mg Capsule 100 mg PO BID 10 Days Qty: 20 RF: 0 cefadroxil 500 mg capsule 500 mg PO BID 10 Days Qty: 20 RF: 0 Continued cetirizine 10 mg Tablet 5 mg PO HS RF: 0 melatonin 3 mg Tablet 3 mg PO HS PRN (Reason: Sleep) RF: 0 estradiol [Estrace] 0.01 % (0.1 mg/gram) Cream 1 g VAGINAL Q3D RF: 0 olmesartan 5 mg Tablet 5 mg PO QAM RF: 0 ezetimibe [Zetia] 10 mg Tablet 10 mg PO QPM RF: 0 cholecalciferol (vitamin D3) [Vitamin D3] 2,000 unit Capsule 2,000 unit PO QAM RF: 0 Xarelto 20 mg Tablet 20 mg PO PM RF: 0 Eylea 2 mg/0.05 mL Solution 1 dose INTRAVITREAL Q42D RF: 0 [facility] 7,160 unit- 113 mg-1 mg Tablet 1 tab PO BID RF: 0 alprazolam [Xanax] 0.25 mg Tablet 0.25 mg PO HS PRN (Reason: Sleep) RF: 0 carvedilol phosphate [Coreg CR] 20 mg Capsule, Er Multiphase 24 Hr 20 mg PO QPM RF: 0 Probiotic 10 billion cell Capsule 1 dose PO DAILY RF: 0 Discontinued acetaminophen [Tylenol Arthritis Pain] 650 mg Tablet Extended Release 650 mg PO Q12H PRN (Reason: PAIN) RF: 0 Stand-Alone Forms: [place], Opioid Pain Management [employer]/Other Patient Handouts: Surgery Prevent DVT After, Replacement Knee, Replacement Knee Home After Discharge Orders: Discharge Order (Routine); Ordered 05/11/19 Ordered By: Nagi Bateman Admission Data Admit Date/Time: 05/09/19 15:38 Attending Provider: Ra Parmar Admit Provider: Ra Parmar Primary Care Provider: Farooq Greer Service: Medical Other Interventions: Discharge Summary Assessment (RN) Last Done: 05/11/19 09:32 DC Date/Time DO NOT enter until pt leaves facility: 05/11/19 14:01
== END 2019-05-11 14:01 | disposition home or self-care (01) | DRG 470 ==
LOC: ASU 10:38 → 3E 15:38